=== PATIENT | female | born 1970 | race Caucasian/White ===

== ENCOUNTER 2017-08-14 19:51 | Emergency (ER) | payer MEDICARE, MEDICAID, SELFPAY ==
[2017-08-14 19:51] VITALS: BP 165/76; PULSE 95; RESP 18; TEMP 36.7; O2SAT 97; BMI 46.3
--- NOTE | 2017-08-14 20:09 | CT_ITS ---
CT Request head Ordering Physician: Rl Jorgensen MD Patient Age: 47 years: Female HISTORY: ITS.REASON: passed out syncope TECHNIQUE: Standard axial CT head. Bone and brain windows performed and reviewed. Since the PACS. COMPARISON :None FINDINGS No acute intracranial findings. No hemorrhage. No mass. No subdural collection. No territorial infarct. Martin-white matter patterns satisfactory. The ventricles are normal in size. Cavum septum lucidum incidentally noted. Anatomical variant. Posterior fossa appears satisfactory. Bone windows demonstrate the skull to be intact. Lack of frontal sinus. Small ethmoid sinuses. Unusual appearance at level inferior ethmoid sinuses with prominent medial bulging posterior medial wall the orbit.. This yields a bilateral 'pinched' appearance at the superior turbinates/ inferior ethmoid air cell region although could be reflection of old trauma, and this this case given the symmetry I suspect it reflects a anatomical variation.. Only the top of superior portion of orbits & globes included. On these images I would note some minimal calcification involving the posterior globes suggesting incidental optic drusen ( axial image 1 & 2). Most likely incidental benign observation but Patient may benefit from a optometry or ophthalmology follow-up for thorough funduscopic exam with this feature. The mastoid air cells middle air and IACs satisfactory otherwise. IMPRESSION: 1. No acute intracranial findings. No mass lesion. 2. Anatomical variations & Additional minor observations noted: .... Cavum septum pallucidum. ... 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 ... 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 Incidental note
[2017-08-14 20:25] LABS: Basophils # 0.1 K/mm3 (0-0.2); Basophils % 0.8 % (0.1-2.0); Eosinophils # 0.3 K/mm3 (0.0-0.4); Eosinophils % 3.2 % (0.1-12.0); Hematocrit 40.6 % (37.0-47.0); Hemoglobin 13.9 g/dL (12.2-16.2); Lymphocytes # 4.1 K/mm3 (0.7-4.5); Lymphocytes % 39.1 K/mm3 (10-50); Mean Corpuscular HGB Conc 34.3 g/dL (31.8-35.4); Mean Corpuscular Hemoglobin 29.9 pg (27.0-31.2); Mean Corpuscular Volume 87.2 fl (81-99); Mean Platelet Volume 7.7 fl (7.4-10.4); Monocytes # 0.4 K/mm3 (0.1-1.0); Neutrophils # 5.5 K/mm3 (1.8-7.8); Platelet Count 232 K/mm3 (142-424); Red Blood Count 4.66 M/mm3 (4.20-5.40); Red Cell Distribution Width 13.7 % (11.5-17.5); White Blood Count 10.4 K/mm3 (4.8-10.8)
[2017-08-14 20:48] LABS: Alanine Aminotransferase 37 U/L (12-78); Albumin Level 3.8 gm/dL (3.4-5.0); Alkaline Phosphatase 83 U/L (46-116); Anion Gap 15.8 mEq/L (5-15); Aspartate Amino Transferase 28 U/L (15-37); Bilirubin,Total 0.3 mg/dL (0.2-1.0); Blood Urea Nitrogen 9 mg/dL (7-18); CKMB Relative Index 1.3 U/L (0-4.0); Calcium 8.6 mg/dL (8.5-10.1); Carbon Dioxide 24 mmol/L (21.0-32.0); Chloride 102 mmol/L (98-107); Creatine Kinase 157 U/L (26-192); Creatine Kinase MB 2.1 mg/ml (0.0-3.6); Creatinine Clearance Estimated 76 mL/min (0-300); Creatinine,Serum 0.79 mg/dL (0.55-1.02); Estimated Glomerular Filt Rate 78 ml/min (>60); GFR (African American) 94 ML/MIN (>60); Globulin 3.9 gm/dl (1.3-3.2); Glucose 172 mg/dL (74-106); Potassium 3.8 mmoL/L (3.5-5.1); Sodium 138 mmol/L (136-145); Total Protein,Serum 7.7 gm/dL (6.4-8.2); Troponin I < 0.02 ng/ml (0.00-0.06)
[2017-08-14 20:51] LABS: Microscopic, Urine URINE MICROSCOPIC (MICROSCOPIC)
[2017-08-14 20:59] LABS: Appearance,Urine CLEAR (Clear); Bilirubin,Urine Negative (Negative); Blood, Urine Negative (Negative); Color,Urine YELLOW (Yellow); Glucose,Urine (UA) Negative (Negative); Ketones,Urine Negative (Negative); Leukocyte Esterase,Urine Negative (Negative); Nitrate,Urine Negative (Negative); Protein,Urine Negative (Negative); Specific Gravity, Urine <= 1.005 (1.005-1.030); Urobilinogen,Urine 0.2 EU/dl (0.2)
[2017-08-14 21:14] LABS: Bacteria,Urine Trace /lpf
[2017-08-14 21:21] LABS: Amphetamine/Metha Screen,Urine Negative ng/mL (<1000); Barbiturates Screen,Urine Negative ng/mL (<200); Benzodiazepines Screen,Urine Negative ng/mL (200); Cannabinoid Screen,Urine Positive ng/mL (<50); Cocaine Screen,Urine Negative ng/g (<300); Methadone Screen,Urine Negative ng/mL (<300); Opiate Screen,Urine Negative ng/mL (<300); Phencyclidine Screen,Urine Negative ng/mL (<25)
[2017-08-14 21:51] VITALS: BP 154/89; PULSE 89; RESP 18; O2SAT 94
[2017-08-14 22:56] VITALS: BP 154/65; PULSE 87; RESP 18; TEMP 36.9; O2SAT 97
== END 2017-08-14 22:57 | disposition left against medical advice (07) ==
PROVIDERS: Emergency Provider Emergency Medicine
DX: R55 Syncope and collapse (principal); E11.9 Type 2 diabetes mellitus without complications; F17.210 Nicotine dependence, cigarettes, uncomplicated; Z79.899 Other long term (current) drug therapy
CPT/HCPCS: 80053; 80305; 81001; 82550; 82553; 84484; 85025; 93005; 93041; 99284

== ENCOUNTER → 2017-08-21 14:54 | Outpatient (REF) | payer MEDICARE, MEDICAID, SELFPAY ==
[2017-08-23 11:54] LABS: Microalbumin, Urine 11.6 ug/mL (Not Estab.)
== END ==
LOC: LAB 14:54
PROVIDERS: Visit Provider Nurse Practitioner Family
DX: E11.628 Type 2 diabetes mellitus with other skin complications (principal)
CPT/HCPCS: 82043

== ENCOUNTER → 2017-08-30 09:07 | Outpatient (CLI) | payer MEDICARE, MEDICAID, SELFPAY | PROVIDERS: PCP Nurse Practitioner Family; Visit Provider Nurse Practitioner Family | DX: E11.9 Type 2 diabetes mellitus without complications (principal) | CPT/HCPCS: 97802; G0108 ==

== ENCOUNTER → 2017-09-06 15:00 | Outpatient (CLI) | payer MEDICARE, MEDICAID, SELFPAY | PROVIDERS: Visit Provider Nurse Practitioner Family | DX: E11.9 Type 2 diabetes mellitus without complications (principal) | CPT/HCPCS: 83036 ==